=== PATIENT | male | born 2000 | race Caucasian/White ===

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

== ENCOUNTER 2019-11-20 09:46 | Outpatient (CLI) | payer OTHER ==
[~2019-11-20 09:46] MED LIST changes: +OSEL75CA PO; +PANADOL EXTRA500 MG; +TRISPEC DMX LI118 ML PO
== END 2019-11-20 10:03 | disposition home or self-care (01) ==
LOC: RX STUDY 09:46
PROVIDERS: ATTEND Internal Medicine
DX: K50.00 Crohn's disease of small intestine without complications (principal)

== ENCOUNTER 2020-10-28 16:41 | Emergency (ER) | payer OTHER ==
[~2020-10-28] VITALS: Ht 170.2 cm; Wt 97.1 kg
[2020-10-28] MEDS ORDERED: VISTARIL25 MG (17:34)
[2020-10-28] MEDS ORDERED: COLESTID1 GM (17:35)
[2020-10-28] MEDS ORDERED: ED-SPAZ0.125 MG (17:35)
[2020-10-28] MEDS ORDERED: LAMICTAL5 MG (17:36)
[2020-10-28] MEDS ORDERED: CLONAZEPAM0.5 MG (17:36)
== END 2020-10-28 20:42 | disposition home or self-care (01) ==
LOC: ER 16:41
DX: H60.8X2 Other otitis externa, left ear (principal)

== ENCOUNTER 2023-11-23 19:27 | Emergency (ER) | payer OTHER ==
[~2023-11-23] VITALS: Ht 167.6 cm; Wt 105.2 kg
[~2023-11-23 19:27] MED LIST changes: +CLONAZEPAM0.5 MG; +COLESTID1 GM; +ED-SPAZ0.125 MG; +LAMICTAL5 MG; +VISTARIL25 MG
[2023-11-23] MEDS ORDERED: KETOROLAC TROMETHAMINE 30 MG VIAL IM STA (20:17)
[2023-11-23] MEDS ORDERED: KETOROLAC TROMETHAMINE 30 MG VIAL ONE (20:23)
== END 2023-11-23 21:54 | disposition home or self-care (01) ==
LOC: ER 19:28
DX: M25.561 Pain in right knee (principal); M79.605 Pain in left leg; Z91.038 Other insect allergy status

== ENCOUNTER 2023-11-25 20:34 | Emergency (ER) | payer OTHER ==
[~2023-11-25] VITALS: Ht 167.6 cm; Wt 106.1 kg
[2023-11-25] MEDS ORDERED: ESKALITH300 MG (20:49)
[2023-11-25] MEDS ORDERED: DEXAMETHASONE SODIUM PHOSPHATE 4 MG/ML VIAL IM STA (21:29)
[2023-11-25] MEDS ORDERED: KETOROLAC TROMETHAMINE 30 MG VIAL IM STA (21:29)
[2023-11-25] MEDS ORDERED: KETOROLAC TROMETHAMINE 30 MG VIAL ONE (21:33)
[2023-11-25] MEDS ORDERED: DEXAMETHASONE SODIUM PHOSPHATE 4 MG/ML VIAL ONE (21:33)
== END 2023-11-25 21:51 | disposition home or self-care (01) ==
LOC: ER 20:36
DX: M25.561 Pain in right knee (principal); Z91.038 Other insect allergy status

== ENCOUNTER 2023-11-30 21:56 | Emergency (ER) | payer OTHER ==
[~2023-11-30] VITALS: Ht 167.6 cm; Wt 106.1 kg
[~2023-11-30 21:56] MED LIST changes: +ESKALITH300 MG
[2023-11-30] MEDS ORDERED: ORPHENADRINE CITRATE 30 MG/ML AMPUL IM ONE (22:30)
[2023-11-30] MEDS ORDERED: KETOROLAC TROMETHAMINE 60 MG VIAL IM ONE (22:30)
[2023-11-30] MEDS ORDERED: GABAPENTIN 300 MG CAPSULE PO ONE (22:45)
[2023-12-01] MEDS ORDERED: ONDANSETRON 4 MG TAB.RAPDIS PO STA (01:09)
[2023-12-01] MEDS ORDERED: DICLOFENAC POTA50 MG PO (02:01)
== END 2023-12-01 02:06 ==
LOC: ER 21:57
DX: M25.561 Pain in right knee (principal)

== ENCOUNTER 2024-02-14 21:03 | Emergency (ER) | payer OTHER ==
[~2024-02-14] VITALS: Ht 167.6 cm; Wt 101.6 kg
[~2024-02-14 21:03] MED LIST changes: +DICLOFENAC POTA50 MG PO
[2024-02-14 21:16] VITALS: BP 123/66; O2SAT 98
[2024-02-14] MEDS ORDERED: ACETAMINOPHEN 325 MG TABLET PO ONE (21:45)
[2024-02-14 22:33] LABS: HEMATOCRIT 44.7 % (39.0-48.0); HEMOGLOBIN 15.9 g/dL (13-16.00); MEAN CELL VOLUME 83.3 fL (80.0-100.00); MEAN CORPUSCULAR HEMOGLOBIN 29.7 pg (27.00-32.0); MEAN CORPUSCULAR HGB CONC 35.7 g/dl (32.0-36.0); PLATELET COUNT 415 K/uL (150-450); RED BLOOD COUNT 5.36 M/uL (4.00-6.00); RED CELL DISTRIBUTION WIDTH 13.3 % (11.5-14.5)
== END 2024-02-15 00:10 | disposition home or self-care (01) ==
LOC: ER 21:04
PROVIDERS: General Practice
DX: J00 Acute nasopharyngitis [common cold] (principal); Z20.822 Contact with and (suspected) exposure to COVID-19; Z87.09 Personal history of other diseases of the respiratory system; Z91.038 Other insect allergy status

== ENCOUNTER 2024-04-19 22:37 | Emergency (ER) | payer OTHER ==
[~2024-04-19] VITALS: Ht 170.2 cm; Wt 99.8 kg
== END 2024-04-20 | disposition left against medical advice (07) ==
LOC: ER 22:40
DX: Z53.21 Procedure and treatment not carried out due to patient leaving prior to being seen by health care provider (principal)

== ENCOUNTER → 2024-05-28 | Emergency (ER) | payer OTHER ==
[~2024-05-28] VITALS: Ht 170.2 cm; Wt 90.7 kg
[~2024-05-28] MED LIST changes: +KETO10TA2 PO; +MEDROLPACK PO
== END | disposition home or self-care (01) ==
LOC: ER 20:25
DX: M25.561 Pain in right knee (principal); Z87.09 Personal history of other diseases of the respiratory system; Z91.038 Other insect allergy status